=== PATIENT | male | born 1960 | race Caucasian/White ===

== ENCOUNTER 2016-09-12 13:58 | Outpatient (CLI) | payer MEDICAID | END 2016-09-12 13:59 | disposition home or self-care (01) | DX: Z72.52 High risk homosexual behavior (principal) ==

== ENCOUNTER 2016-09-25 07:28 | Outpatient (CLI) | payer MEDICAID | END 2016-09-25 07:29 | disposition home or self-care (01) | DX: Z72.52 High risk homosexual behavior (principal) ==

== ENCOUNTER 2016-12-14 08:08 | Outpatient (CLI) | payer MEDICAID ==
[2016-12-14 11:36] LABS: CREATININE 0.9 mg/dL (0.6-1.2)
[2016-12-17 04:53] LABS: TEST RESULT REPORT (())
[2016-12-20 00:07] LABS: HSV 1/2 IGM INDEX <0.90 INDEX (()); HSV 2 IGG INDEX <0.90 INDEX (())
== END 2016-12-14 08:09 | disposition home or self-care (01) ==
LOC: LAB.F 08:08
PROVIDERS: ATTEND Nurse Practitioner Family
DX: Z72.52 High risk homosexual behavior (principal)
CPT/HCPCS: 36415; 81599; 82565; 86592; 86694; 86695; 86696; 86803; 87389; 87491; 87591

== ENCOUNTER 2020-05-02 14:34 | Emergency (ER) | payer MEDICAID ==
--- NOTE | 2020-05-02 15:20 | XRAY Report ---
PROCEDURE: Ankle 3 View LT INDICATIONS: trauma/pain TECHNIQUE: 3 views of the ankle were acquired. COMPARISON: None. FINDINGS: Bones: Small ossification noted over the lateral aspect of the talus seen on the AP view. This may r epresent a small avulsion fracture fragment. Chronic appearing ossification noted adjacent to the dis jessica margin of the medial malleolus. Age-indeterminate ossification over the posterior aspect of the t alus seen on the lateral view only. No other fractures or dislocations. Ankle mortise is normally al igned. No suspicious bony lesions. Soft tissues: Soft tissue swelling surrounding the medial and lateral malleolus. No tibiotalar joint effusion. Achilles tendon appears normal. IMPRESSION: 1. Possible avulsion fragment involving the lateral talus. 2. Age-indeterminate ossification noted over the posterior margin of the posterior process of the jessica us. This may represent an accessory ossicle. Recommend correlation for point tenderness in this regio n. 3. Medial and lateral malleolus soft tissue edema. Consider immobilization and repeat imaging in 10-14 days for a more significant occult fracture given reported trauma falling off a ladder from 8 feet high. Reviewed by: Marcus Galicia MD on 05/02/2020 2:18 PM [place] Approved by: Marcus Galicia MD on 05/02/2020 2:18 PM [facility] Station ID: [id number]
--- NOTE | 2020-05-02 15:35 | ED Physician Documentation ---
PD HPI LOWER EXT INJURY - Stated complaint Stated Complaint: LEFT ANKLE PAIN - Chief complaint Chief Complaint: Trauma Ext - History obtained from History obtained from: Patient - History of Present Illness PD HPI LOW EXT INJURY LOCATION: Left, Ankle Type of injury: Fall Where injury occurred: Work Timing - onset: Today Timing - duration: Minutes Timing - details: Abrupt onset, Still present Improved by: Rest, Ice, Immobilization Worsened by: Moving, Palpating Associated symptoms: Swelling. No: Weakness, Numbness, Tingling Contributing factors: No: Anticoagulated Similar symptoms before: Diagnosis (ankle sprain) Recently seen: Not recently seen - Additional information Additional information: 60 y/o male up on a ladder fell from about 8 feet up and landed on a saw horse with his foot stuck in the saw horse he continued to fall backwards and he hyperextended his foot and fell onto his back. He denies any pain to the back or the spine and did not get the wind knocked out. He denies any LOC or injury to the head, chest, arms the right leg or the rest of the left leg. He does have pain and swelling to the left ankle both medial and lateral. Review of Systems Constitutional: denies: Fever Eyes: denies: Decreased vision Ears: denies: Ear pain Nose: denies: Congestion Throat: denies: Sore throat Cardiac: denies: Chest pain / pressure, Palpitations Respiratory: denies: Dyspnea, Cough GI: denies: Abdominal Pain, Nausea, Vomiting : denies: Dysuria, Frequency Skin: denies: Rash, Lesions Musculoskeletal: denies: Neck pain, Back pain, Extremity pain PD PAST MEDICAL HISTORY - Past Surgical History Past Surgical History: Yes General: Colonoscopy - Allergies Allergies/Adverse Reactions: Allergies Allergy/AdvReac Type Severity Reaction Status Date / Time No Known Drug Allergies Allergy Verified 05/02/20 14:42 - Social History Does the pt smoke?: No Smoking Status: Never smoker Does the pt drink ETOH?: No Does the pt have substance abuse?: No - Immunizations Immunizations are current?: Yes PD ED PE NORMAL - Vitals Vital signs reviewed: Yes (hypertensive) - General General: Alert and oriented X 3, No acute distress, Well developed/nourished - HEENT HEENT: Atraumatic, PERRL, EOMI - Neck Neck: Supple, no meningeal sign, No bony TTP - Cardiac Cardiac: RRR, No murmur - Respiratory Respiratory: No respiratory distress, Clear bilaterally, Other (no chest wall or spinal point tenderness) - Back Back: No CVA TTP, No spinal TTP - Derm Derm: Normal color, Warm and dry, No rash - Extremities Extremities: No deformity, No edema - Neuro Neuro: Alert and oriented X 3, 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 Possible is a 1 vision fragment involving the lateral talus. 2. Age indeterminate ossification noted over the posterior margin the posterior process of the talus. This may represent an accessory ossicle. Recommend correlation for point tenderness in this region. ), Final report received (3. Medial and lateral soft tissue edema.), EMP read indepedently, See rad report PD MEDICAL DECISION MAKING - ED course Complexity details: reviewed results, re-evaluated patient, considered differential, d/w patient ED course: 60-year-old male with a fever fall off a ladder has twisted his ankle and he does have some fragments of bone on the talus both medial and posterior. He has tenderness to these areas as well. He is placed into an ankle air stirrup and he is able to bear weight on this with significant enough pain that he will require crutches. I discussed with him the natural history of an ankle sprain versus these avulsion fractures and he may require more aggressive immobilization or prolonged use of the immobilizer. I have asked the patient to follow-up with orthopedics. Departure - Departure Disposition: 01 Home, Self Care Clinical Impression: Ankle fracture, left Qualifiers: Encounter type: initial encounter Fracture type: closed Qualified Code(s): S82.892A - Other fracture of left lower leg, initial encounter for closed fracture Condition: Stable Instructions: ED Sprain Ankle W X Ray Follow-Up: [facility] [Provider Group] Comments: Today it appears there is a bit more than "just a sprain" The fractures are subtle and should heal well. Keep the immobilizer on and follow up with orthopedics this week. It may be possible to get back to work within the next 2 weeks with a an immobilizer on. Forms: Activity restrictions
[2020-05-02 16:04] VITALS: BP 128/79
== END 2020-05-02 16:09 | disposition home or self-care (01) ==
LOC: ED 14:34
DX: S92.152A Displaced avulsion fracture (chip fracture) of left talus, initial encounter for closed fracture (principal); W11.XXXA Fall on and from ladder, initial encounter; Y99.0 Civilian activity done for income or pay
CPT/HCPCS: 99282; 99283

== ENCOUNTER 2020-05-16 14:58 | Outpatient (CLI) | payer OTHER ==
--- NOTE | 2020-05-16 17:26 | CT Report ---
PROCEDURE: LOWER EXTREMITY WO - LT INDICATIONS: L ANKLE JOINT PAIN TECHNIQUE: Noncontrast 3 mm axial sections acquired of the left ankle, with coronal and sagittal reformats. COMPARISON: Left ankle radiographs dated 05/02/2020 FINDINGS: Image quality: Excellent. Bones: There is a minimally displaced comminuted fracture at the lateral aspect of the talus that ma y be related to ligament avulsion or a direct contusion. Numerous tiny osseous fragments are seen dayna ng the lateral aspect of the talus. Additional small osseous fragments are seen adjacent to the posterior talus where there is a tiny fra cture of the posterior process. Cortical irregularity of the adjacent portion of the dorsal calcaneus is also likely a small impaction fracture. Multiple osseous fragments appear to be within the rails developer ior subtalar joint space. Small osseous fragments are also seen adjacent to the anterolateral tibia near the insertion of the a nterior tibiofibular ligament that may represent an avulsion fracture or contusion. Small ossificatio ns are seen along the course of the deltoid ligament that are most likely related to a remote prior i njury. Soft tissues: Diffuse soft tissue edema is seen surrounding the ankle. The articular cartilages, lig aments, and tendons are not well evaluated with CT. IMPRESSION: Multiple small cortical fractures are seen involving the lateral and posterior talus as well as the d orsal calcaneus and the anterolateral tibia with numerous tiny comminuted osseous fragments surroundi ng the ankle. Fractures may be related to contusions and/or ligamentous avulsions. Reviewed by: Freddy Evans MD on 05/16/2020 5:24 PM PST Approved by: Freddy Evans MD on 05/16/2020 5:24 PM PST Station ID: [id number]
== END 2020-05-16 14:59 | disposition home or self-care (01) ==
LOC: DI 14:58
PROVIDERS: ATTEND Orthopaedic Surgery
DX: S92.142A Displaced dome fracture of left talus, initial encounter for closed fracture (principal); S92.132A Displaced fracture of posterior process of left talus, initial encounter for closed fracture; S92.002A Unspecified fracture of left calcaneus, initial encounter for closed fracture; S82.292A Other fracture of shaft of left tibia, initial encounter for closed fracture

== ENCOUNTER 2020-07-11 07:25 | Outpatient (CLI) | payer OTHER, MEDICAID ==
--- NOTE | 2020-07-11 17:45 | XRAY Report ---
PROCEDURE: Ankle 3 View LT INDICATIONS: FX OF L TALUS TECHNIQUE: 3 views of the ankle were acquired. COMPARISON: 05/02/2020 ankle plain films FINDINGS: Bones: No fractures or dislocations. Ankle mortise is normally aligned. No suspicious bony lesions . Soft tissues: No tibiotalar joint effusion. Achilles tendon appears normal. IMPRESSION: No trauma found. A prior plain film had raises concern for possible talus avulsion fragm ent. No talus fracture is found. Depending on the clinical status follow-up for hidden injury or liga mentous injury may be warranted by MR scanning. Reviewed by: Ananth Thomas MD on 07/11/2020 5:43 PM PST Approved by: Ananth Thomas MD on 07/11/2020 5:43 PM PST Station ID: [id number]
== END 2020-07-11 23:59 | disposition home or self-care (01) ==
LOC: DI.N 07:25
PROVIDERS: ATTEND Orthopaedic Surgery
DX: S92.192A Other fracture of left talus, initial encounter for closed fracture (principal)

== ENCOUNTER 2020-10-18 07:57 | Outpatient (CLI) | payer MEDICAID ==
--- NOTE | 2020-10-18 09:33 | XRAY Report ---
PROCEDURE: Lumbar Spine 2 View INDICATIONS: LOWER BACK PAIN TECHNIQUE: 3 views of the lumbar spine were acquired. COMPARISON: None. FINDINGS: Bones: 5 [id number] vertebrae are present. There is trace retrolithesis of L2 on L3, L3 on L4, L4 on L5, L5 on S1. No vertebral body compression fractures. No suspicious bony lesions. Nonbridg ing anterior osteophytes are present at L2, L3, L4. Multilevel disc space narrowing. Moderate valerie inal narrowing at L5-S1, mild at L3-4, L4-5. Soft tissues: Overlying bowel gas pattern is normal. No suspicious soft tissue calcifications. IMPRESSION: Degenerative changes are present, most notable at L5-S1. Reviewed by: Brook Dailey MD on 10/18/2020 9:32 AM PDT Approved by: Brook Dailey MD on 10/18/2020 9:32 AM PDT Station ID: [id number]
[2020-10-18 14:12] LABS: BASOPHILS % (AUTO) 0.7 %; EOSINOPHILS # (AUTO) 0.1 10^3/uL (0.0-0.7); EOSINOPHILS % (AUTO) 1.5 %; HCT - HEMATOCRIT 46.3 % (42.0-52.0); HGB - HEMOGLOBIN 14.3 g/dL (14.0-18.0); LYMPHOCYTES # (AUTO) 1.1 10^3/uL (1.5-3.5); MEAN CORPUSCULAR HEMOGLOBIN 30.6 pg (27.0-31.0); MEAN CORPUSCULAR HGB CONC 30.9 g/dL (32.0-36.0); MEAN CORPUSCULAR VOLUME 98.9 fL (80.0-94.0); MEAN PLATELET VOLUME 9.8 fL (7.4-11.4); MONOCYTES # (AUTO) 0.4 10^3/uL (0.0-1.0); MONOCYTES % (AUTO) 6.9 %; NEUTROPHILS # (AUTO) 4.3 10^3/uL (1.5-6.6); NEUTROPHILS % (AUTO) 72.6 %; PLT - PLATELET COUNT 399 10^3/uL (130-450); RED BLOOD COUNT 4.68 10^6/uL (4.70-6.10); RED CELL DISTRIBUTION WIDTH 13.2 % (12.0-15.0)
[2020-10-18 15:30] LABS: THYROID STIMULATING HORMONE 4.03 uIU/mL (0.34-5.60)
[2020-10-18 15:42] LABS: ALBUMIN 4.4 g/dL (3.2-5.5); ALBUMIN/GLOBULIN RATIO 1.3 (1.0-2.2); ALKALINE PHOSPHATASE 84 IU/L (42-121); ALT ALANINE AMINOTRANSFERASE 19 IU/L (10-60); AST ASPARTATE AMINOTRANSFERASE 21 IU/L (10-42); BUN - BLOOD UREA NITROGEN 12 mg/dL (6-20); CALCIUM 9.6 mg/dL (8.5-10.3); CARBON DIOXIDE - CO2 25 mmol/L (21-32); CHLORIDE 104 mmol/L (101-111); CHOL/HDL RATIO 3.5 (<5.0); CHOLESTEROL 254 mg/dL; CREATININE 0.8 mg/dL (0.6-1.2); GFR - MDRD 98 (>89); GLUCOSE 97 mg/dL (70-100); HDL CHOLESTEROL 72 mg/dL; LDL CHOLESTEROL,CALCULATED 162 mg/dL; LDL/HDL RATIO 2.3 (<3.6); POTASSIUM 4.4 mmol/L (3.5-5.0); SODIUM 139 mmol/L (135-145); TOTAL PROTEIN 7.7 g/dL (6.7-8.2); TRIGLYCERIDES 98 mg/dL; VLDL CHOLESTEROL 20 mg/dL
[2020-10-19 15:16] LABS: HIV AG/AB 4TH GEN NON-REACTIVE (NON-REACTIVE)
== END 2020-10-18 07:58 | disposition home or self-care (01) ==
LOC: DI.S 07:57
PROVIDERS: ATTEND Internal Medicine
DX: M43.16 Spondylolisthesis, lumbar region (principal); M43.17 Spondylolisthesis, lumbosacral region; M51.36 Other intervertebral disc degeneration, lumbar region; M48.061 Spinal stenosis, lumbar region without neurogenic claudication; M51.37 Other intervertebral disc degeneration, lumbosacral region; M48.07 Spinal stenosis, lumbosacral region; E78.5 Hyperlipidemia, unspecified; R20.2 Paresthesia of skin; Z12.5 Encounter for screening for malignant neoplasm of prostate; Z11.3 Encounter for screening for infections with a predominantly sexual mode of transmission; Z79.899 Other long term (current) drug therapy
CPT/HCPCS: 36415; 80053; 80061; 82607; 83721; 84153; 84443; 85025; 87389

== ENCOUNTER 2021-01-09 07:56 | Outpatient (CLI) | payer MEDICAID ==
[2021-01-10 16:25] LABS: HIV AG/AB 4TH GEN NON-REACTIVE (NON-REACTIVE)
== END 2021-01-09 07:57 | disposition home or self-care (01) ==
LOC: LAB.S 07:56
PROVIDERS: ATTEND Internal Medicine
DX: Z11.4 Encounter for screening for human immunodeficiency virus [HIV] (principal)
CPT/HCPCS: 87389

== ENCOUNTER 2021-05-02 07:13 | Outpatient (CLI) | payer OTHER ==
[2021-05-02 14:25] LABS: BASOPHILS # (AUTO) 0.1 10^3/uL (0.0-0.1); BASOPHILS % (AUTO) 0.7 %; EOSINOPHILS # (AUTO) 0.1 10^3/uL (0.0-0.7); EOSINOPHILS % (AUTO) 1.5 %; HCT - HEMATOCRIT 45.6 % (42.0-52.0); HGB - HEMOGLOBIN 14.9 g/dL (14.0-18.0); LYMPHOCYTES % (AUTO) 14.7 %; MEAN CORPUSCULAR HEMOGLOBIN 33.9 pg (27.0-31.0); MEAN CORPUSCULAR HGB CONC 32.7 g/dL (32.0-36.0); MEAN CORPUSCULAR VOLUME 103.6 fL (80.0-94.0); MEAN PLATELET VOLUME 9.6 fL (7.4-11.4); MONOCYTES # (AUTO) 0.7 10^3/uL (0.0-1.0); MONOCYTES % (AUTO) 10.3 %; NEUTROPHILS % (AUTO) 72.2 %; PLT - PLATELET COUNT 314 10^3/uL (130-450); RED CELL DISTRIBUTION WIDTH 13.2 % (12.0-15.0); WHITE BLOOD COUNT 6.9 x10^3/uL (4.8-10.8)
[2021-05-02 14:59] LABS: ALBUMIN/GLOBULIN RATIO 1.3 (1.0-2.2); BILIRUBIN,TOTAL 0.8 mg/dL (0.2-1.0); CALCIUM 9.2 mg/dL (8.5-10.3); POTASSIUM 4.3 mmol/L (3.5-5.0); TOTAL PROTEIN 7.1 g/dL (6.7-8.2)
[2021-05-03 14:06] LABS: HIV AG/AB 4TH GEN NON-REACTIVE (NON-REACTIVE)
== END 2021-05-02 07:14 | disposition home or self-care (01) ==
LOC: LAB.S 07:13
PROVIDERS: ATTEND Internal Medicine
DX: Z51.81 Encounter for therapeutic drug level monitoring (principal); Z79.899 Other long term (current) drug therapy; Z11.4 Encounter for screening for human immunodeficiency virus [HIV]
CPT/HCPCS: 36415; 80053; 85025; 87389

== ENCOUNTER 2021-08-02 14:23 | Outpatient (CLI) | payer OTHER ==
[2021-08-02 18:57] LABS: ALBUMIN 4.3 g/dL (3.2-5.5); ALBUMIN/GLOBULIN RATIO 1.3 (1.0-2.2); BILIRUBIN,TOTAL 1.1 mg/dL (0.2-1.0); CREATININE 1.1 mg/dL (0.6-1.2); POTASSIUM 3.8 mmol/L (3.5-5.0); TOTAL PROTEIN 7.7 g/dL (6.7-8.2)
[2021-08-03 13:56] LABS: HIV AG/AB 4TH GEN NON-REACTIVE (NON-REACTIVE)
== END 2021-08-02 14:24 | disposition home or self-care (01) ==
LOC: LAB.N 14:23
PROVIDERS: ATTEND Internal Medicine
DX: R74.8 Abnormal levels of other serum enzymes (principal); R79.89 Other specified abnormal findings of blood chemistry; Z51.81 Encounter for therapeutic drug level monitoring
CPT/HCPCS: 36415; 80053; 82977; 87389

== ENCOUNTER 2022-03-12 07:42 | Outpatient (CLI) | payer OTHER ==
[2022-03-13 04:08] LABS: HBsAG SCREEN Negative (Negative); HCV AB <0.1 s/co ratio (0.0-0.9); HEPATITIS B SURFACE AB QUANT 8.2 mIU/mL (Immunity>9.9); HIV SCREEN 4TH GENERATION Non Reactive (Non Reactive)
== END 2022-03-12 07:43 | disposition home or self-care (01) ==
LOC: LAB.N 07:42
PROVIDERS: ATTEND Physician Assistant
DX: Z51.81 Encounter for therapeutic drug level monitoring (principal); Z79.899 Other long term (current) drug therapy
CPT/HCPCS: 36415; 86317; 86803; 87340; 87389

== ENCOUNTER 2022-04-11 09:28 | Outpatient (CLI) | payer OTHER, MEDICAID ==
--- NOTE | 2022-04-11 12:35 | DEXA Report ---
PROCEDURE: Dexa Spine and/or Hip INDICATIONS: JAIL USE OF HIGH RISK MEDICATION, TOBACCO USE TECHNIQUE: Dual energy x-ray absorptiometry (DXA) was performed on a [employer] System. Regions measur ed are the AP Spine, femoral neck, and if needed forearm. COMPARISON: None. FINDINGS: Lumbar Spine: Bone Mineral Density 1.136 g/cm/cm,T score -0.7, normal Left total Hip: Bone Mineral Density 0.834 g/cm/cm,T score -1.8, osteopenia Left Femoral Neck: Bone Mineral Density 0.916 g/cm/cm, T score -1.3, osteopenia (T score greater or equal to -1.0: NORMAL) (T score from -1.1 to -2.4: OSTEOPENIA) (T score less than or equal to -2.5 to: OSTEOPOROSIS) Impression: Osteopenia Patients with diagnosis of osteoporosis or osteopenia should have regular bone mineral density assess ment. For those eligible for Medicare, routine testing is allowed once every 2 years. Testing frequ ency can be increased for patients who have rapidly progressing disease or for those who are receivin g medical therapy to restore bone mass. Reviewed by: Mian Henley on 04/11/2022 12:34 PM PDT Approved by: Mian Henley on 04/11/2022 12:34 PM PDT Station ID: [id number]
--- NOTE | 2022-04-11 15:19 | CT Report ---
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 Multiplanar MIP reformats were then reconstructed. For radiation dose reduction, the follo wing was used: automated exposure control, adjustment of mA and/or kV according to patient size. COMPARISON: None. FINDINGS: Image quality: Excellent. Lungs and pleura: The lungs are clear. No suspicious nodules, masses, groundglass opacities, or cons olidations. Central and peripheral airways are patent and of normal caliber. No pleural effusions or pleural calcifications. Mediastinum: Heart size is normal. No pericardial effusion. No mediastinal adenopathy by size crit eria. Thoracic aorta and central pulmonary arteries are normal in size. Esophagus is normal in leticia rai. No hiatal hernia. Bones and chest wall: No suspicious bony lesions. No vertebral body compression fractures. No axil ria or supraclavicular adenopathy by size criteria. The thyroid is normal in size and there are no incidental findings. Abdomen: Visualized upper abdomen solid organs and bowel loops appear normal in the absence of contr ast. IMPRESSION: 1. No suspicious pulmonary nodules or masses. 2. Lung RADS category 1, negative. Continue annual low-dose chest CT screening as long as the patient meets established criteria. Reviewed by: Jillian Conte MD on 04/11/2022 3:17 PM PDT Approved by: Jillian Conte MD on 04/11/2022 3:17 PM PDT Station ID: [id number]
== END 2022-04-11 09:29 | disposition home or self-care (01) ==
LOC: DI 09:28
PROVIDERS: ATTEND Physician Assistant
DX: Z12.2 Encounter for screening for malignant neoplasm of respiratory organs (principal); M85.89 Other specified disorders of bone density and structure, multiple sites; Z87.891 Personal history of nicotine dependence; Z79.899 Other long term (current) drug therapy

== ENCOUNTER 2022-10-31 09:33 | Outpatient (CLI) | payer OTHER ==
[2022-10-31 12:22] LABS: BASOPHILS % (AUTO) 0.7 %; EOSINOPHILS # (AUTO) 0.1 10^3/uL (0.0-0.7); EOSINOPHILS % (AUTO) 1.7 %; HCT - HEMATOCRIT 45.5 % (42.0-52.0); HGB - HEMOGLOBIN 15.4 g/dL (14.0-18.0); LYMPHOCYTES # (AUTO) 1.2 10^3/uL (1.5-3.5); LYMPHOCYTES % (AUTO) 21.2 %; MEAN CORPUSCULAR HEMOGLOBIN 34.6 pg (27.0-31.0); MEAN CORPUSCULAR HGB CONC 33.8 g/dL (32.0-36.0); MEAN CORPUSCULAR VOLUME 102.2 fL (80.0-94.0); MEAN PLATELET VOLUME 9.5 fL (7.4-11.4); MONOCYTES # (AUTO) 0.5 10^3/uL (0.0-1.0); MONOCYTES % (AUTO) 8.9 %; NEUTROPHILS # (AUTO) 3.8 10^3/uL (1.5-6.6); NEUTROPHILS % (AUTO) 66.8 %; PLT - PLATELET COUNT 314 10^3/uL (130-450); RED BLOOD COUNT 4.45 10^6/uL (4.70-6.10); WHITE BLOOD COUNT 5.8 x10^3/uL (4.8-10.8)
[2022-10-31 12:28] LABS: ALBUMIN 4.1 g/dL (3.2-5.5); ALBUMIN/GLOBULIN RATIO 1.2 (1.0-2.2); BILIRUBIN,TOTAL 0.8 mg/dL (0.2-1.0); CALCIUM 9.1 mg/dL (8.5-10.3); POTASSIUM 4.3 mmol/L (3.5-5.0); TOTAL PROTEIN 7.4 g/dL (6.7-8.2)
[2022-11-02 00:08] LABS: HCV AB Non Reactive (Non Reactive); HIV SCREEN 4TH GENERATION Non Reactive (Non Reactive)
== END 2022-10-31 09:34 | disposition home or self-care (01) ==
LOC: LAB.N 09:33
PROVIDERS: ATTEND Physician Assistant
DX: Z51.81 Encounter for therapeutic drug level monitoring (principal)
CPT/HCPCS: 36415; 80053; 85025; 86803; 87389

== ENCOUNTER 2022-11-16 13:06 | Emergency (ER) | payer OTHER ==
--- NOTE | 2022-11-16 14:49 | ED Physician Documentation ---
PD HPI UPPER EXT INJURY - Stated complaint Stated Complaint: RT HAND INJURY - Chief complaint Chief Complaint: Laceration - History obtained from History obtained from: Patient (This is a left-handed gentleman who is up-to-date on tetanus who had a trip and fall landing with his right palm on concrete and sustaining a blunt force laceration on the right palm. No other injuries.) PD PAST MEDICAL HISTORY - Past Surgical History Past Surgical History: Yes General: Colonoscopy - Allergies Allergies/Adverse Reactions: Allergies Allergy/AdvReac Type Severity Reaction Status Date / Time No Known Drug Allergies Allergy Verified 11/16/22 13:35 - Social History Does the pt smoke?: No Smoking Status: Never smoker Does the pt drink ETOH?: No Does the pt have substance abuse?: No - Immunizations Immunizations are current?: Yes PD ED PE NORMAL - Vitals Vital signs reviewed: Yes - General General: Alert and oriented X 3, No acute distress - Extremities Extremities: Other (2 cm laceration on the right palm near the heads of the fourth and fifth metacarpals. There is no bony tenderness. Good strength in flexion function of each digit. Normal sensation at the tips.) - Neuro Neuro: Alert and oriented X 3, Normal speech Results - Vitals Vitals: Vital Signs - 24 hr 11/16/22 13:32 Temperature 36.2 C L Heart Rate 62 Respiratory 16 Rate Blood Pressure 162/106 H O2 Saturation 96 Oxygen O2 Source Room air Procedures - Laceration (location) R palm Length in cm: 2 Wound type: Linear, Into subcut fat Anesthesia: Lidocaine 1%, With bicarb Wound preparation: Hibiclens, Irrigated copiously NS Skin layer closure: Nylon, Interrupted, Size #-0 - enter number ([phone]), Sutures - enter # (5) Other: Tetanus UTD PD Medical Decision Making - ED course ED course: L&I paperwork [id number] completed and submitted Departure - Departure Disposition: 01 Home, Self Care Clinical Impression: Laceration Condition: Good Record reviewed to determine appropriate education?: Yes Instructions: ED Laceration Hand Comments: Come back for any signs of infection which would include: Redness, swelling, drainage, increased pain, or fevers. You can wash it soap and water. Keep it covered and moist with bacitracin ointment which is available over the counter; avoid neosporin. Follow-up with your physician in about 14 days for suture removal.
[2022-11-16] MEDS ORDERED: BUFFERED LIDOCAINE 10 ML SYRINGE SUBQ STA (14:50)
[2022-11-16 15:20] VITALS: BP 150/108
== END 2022-11-16 15:20 | disposition home or self-care (01) ==
LOC: ED 13:06
DX: S61.411A Laceration without foreign body of right hand, initial encounter (principal); W01.0XXA Fall on same level from slipping, tripping and stumbling without subsequent striking against object, initial encounter; Y99.0 Civilian activity done for income or pay
CPT/HCPCS: 1040M; 12001; 99282